=== PATIENT | female | born 1965 | race Caucasian/White ===

== ENCOUNTER 2019-02-07 07:16 | Emergency (ER) | payer BC ==
[~2019-02-07] VITALS: Ht 162.6 cm; Wt 113.6 kg
[~2019-02-07 07:16] MED LIST: ARIP5TAB4 PO; ARMO250T4 PO; CHOL2000 PO; CLON0.1T PO; CYAN-19 PO; FLUO20CA39 PO; GABA-532 PO; METH20CP12 PO; METH20TA42 PO; TAPE100T2 PO; TOPI25TA15 PO; VAL5T PO; ZIPR60CA7 PO
[2019-02-07 07:23] VITALS: BP 140/77
[2019-02-07] MEDS ORDERED: LIDOcaine 1% w/epiNEPHrine 1:200,000 30ml vial IM ONE (07:50)
[2019-02-07] MEDS ORDERED: CefTRIAXone 1000mg IM Kit (w/lidocaine diluent) IM ONE (08:10)
[2019-02-07] MEDS ORDERED: CEPH500C5 PO (08:48)
== END 2019-02-07 09:16 | disposition home or self-care (01) ==
LOC: ER 07:16
DX: S50.02XA Contusion of left elbow, initial encounter (principal); L02.31 Cutaneous abscess of buttock; K59.00 Constipation, unspecified; G89.29 Other chronic pain; Z79.899 Other long term (current) drug therapy; W18.39XA Other fall on same level, initial encounter; Y93.89 Activity, other specified; Y92.89 Other specified places as the place of occurrence of the external cause; Y99.8 Other external cause status
CPT/HCPCS: 10060; 73080; 96372; 99284; J0696; J3490